=== PATIENT | male | born 1985 | race Caucasian/White ===

== ENCOUNTER 2017-03-12 18:21 | Emergency (ER) | payer BC, MEDICAID ==
[~2017-03-12] VITALS: Ht 172.7 cm; Wt 92.0 kg
[~2017-03-12 18:21] MED LIST: AMOX-291 PO; CARB200T PO; CLON0.5T PO; ESCI10TA10 PO; ESCI20TA10 PO; HYDR-3237 PO; HYDR-3241 PO; IBUP200T48 PO; LORA-446 PO; MELO15TA24 PO; OXYC-302 PO; PARO20TA98 PO
[2017-03-12] MEDS ORDERED: ASPIRIN 81 MG TABLET CHEW ONE (19:38)
[2017-03-12 19:54] LABS: HEMATOCRIT 48.5 % (39.2-51.8); HEMOGLOBIN 16.8 g/dL (13.7-18.0); WHITE BLOOD COUNT 8.4 x10^3/uL (3.4-10)
[2017-03-12] MEDS ORDERED: ASPIRIN 81 MG TABLET CHEW PO ONE (20:00)
[2017-03-12 20:02] VITALS: BP 117/77
[2017-03-12 20:05] LABS: BLOOD UREA NITROGEN 15 mg/dL (7-18)
[2017-03-12 20:11] LABS: IS PT STATUS REG ER OR PRE ER? YES
== END 2017-03-12 20:55 | disposition home or self-care (01) ==
LOC: ED 20:50
DX: S16.1XXA Strain of muscle, fascia and tendon at neck level, initial encounter (principal); F41.1 Generalized anxiety disorder; F32.9 Major depressive disorder, single episode, unspecified; Z88.8 Allergy status to other drugs, medicaments and biological substances; X58.XXXA Exposure to other specified factors, initial encounter; Y93.89 Activity, other specified; Y92.89 Other specified places as the place of occurrence of the external cause; Y99.8 Other external cause status
CPT/HCPCS: 36415; 80048; 82040; 84484; 85025; 93005; 99285

== ENCOUNTER 2017-03-27 03:27 | Emergency (ER) | payer BC, MEDICAID ==
[~2017-03-27] VITALS: Ht 172.7 cm; Wt 91.3 kg
[2017-03-27 03:28] VITALS: BP 142/85
[2017-03-27] MEDS ORDERED: LIDOCAINE 1%, 20ML ONE (03:51)
[2017-03-27] MEDS ORDERED: LIDOCAINE 1%, 20ML INFIL ONE (04:00)
[2017-03-27] MEDS ORDERED: DIPH,PERTUSS(ACELL),TET VAC/PF 0.5 ML IM-VACC ONE ×2 (04:30→04:46)
== END 2017-03-27 05:07 | disposition home or self-care (01) ==
LOC: ED 04:05
DX: L60.0 Ingrowing nail (principal)
CPT/HCPCS: 11730; 90471; 90715

== ENCOUNTER 2017-04-06 19:45 | Emergency (ER) | payer BC, MEDICAID ==
[~2017-04-06] VITALS: Ht 172.7 cm; Wt 90.3 kg
[2017-04-06 19:47] VITALS: BP 128/85
[2017-04-06] MEDS ORDERED: KETOROLAC 30 MG/1 ML IM ONE (20:30)
[2017-04-06] MEDS ORDERED: KETOROLAC 30 MG/1 ML ONE (20:45)
== END 2017-04-06 20:57 | disposition left against medical advice (07) ==
LOC: ED 20:51
DX: S39.012A Strain of muscle, fascia and tendon of lower back, initial encounter (principal); F32.9 Major depressive disorder, single episode, unspecified; F10.20 Alcohol dependence, uncomplicated; G43.909 Migraine, unspecified, not intractable, without status migrainosus; V17.4XXA Pedal cycle driver injured in collision with fixed or stationary object in traffic accident, initial encounter; Y93.I9 Activity, other involving external motion; Y92.488 Other paved roadways as the place of occurrence of the external cause; Y99.8 Other external cause status
CPT/HCPCS: 99283

== ENCOUNTER 2017-05-14 14:52 | Emergency (ER) | payer MEDICAID, OTHER ==
[~2017-05-14] VITALS: Ht 172.7 cm; Wt 90.6 kg
[2017-05-14 15:45] LABS: HEMATOCRIT 49.9 % (39.2-51.8); HEMOGLOBIN 17.1 g/dL (13.7-18.0); WHITE BLOOD COUNT 6.8 x10^3/uL (3.4-10)
[2017-05-14] MEDS ORDERED: ESCI10TA10 PO (15:49)
[2017-05-14 15:55] LABS: BLOOD UREA NITROGEN 17 mg/dL (7-18)
[2017-05-14] MEDS ORDERED: SODIUM CHLORIDE FLUSH 10ML SYR IVF ONE (16:00)
[2017-05-14] MEDS ORDERED: SODIUM CHLORIDE 0.9% 1,000ML IVBOLUS ONE (16:00)
[2017-05-14 16:39] VITALS: BP 125/81
== END 2017-05-14 16:55 | disposition home or self-care (01) ==
LOC: ED 16:49
DX: R00.2 Palpitations (principal); F41.1 Generalized anxiety disorder; G40.909 Epilepsy, unspecified, not intractable, without status epilepticus
CPT/HCPCS: 36415; 80048; 82040; 85025; 93005; 96360; 99285; J7030

== ENCOUNTER 2017-05-31 21:44 | Emergency (ER) | payer OTHER ==
[~2017-05-31] VITALS: Ht 172.7 cm; Wt 90.3 kg
[2017-05-31 21:45] VITALS: BP 144/82
[2017-05-31] MEDS ORDERED: ONDANSETRON ODT 4 MG PO ONE (22:30)
== END 2017-05-31 23:11 | disposition home or self-care (01) ==
LOC: ED 23:07
DX: R11.2 Nausea with vomiting, unspecified (principal)
CPT/HCPCS: 99283; Q0162

== ENCOUNTER 2017-06-14 02:48 | Emergency (ER) | payer OTHER ==
[~2017-06-14] VITALS: Ht 172.7 cm; Wt 92.3 kg
[~2017-06-14 02:48] MED LIST changes: -IBUP200T48 PO; +IBUP200T49 PO
[2017-06-14 04:41] VITALS: BP 144/81
== END 2017-06-14 05:03 | disposition home or self-care (01) ==
LOC: ED 04:57
DX: R00.2 Palpitations (principal); F41.1 Generalized anxiety disorder; F11.10 Opioid abuse, uncomplicated
CPT/HCPCS: 93005; 99283

== ENCOUNTER 2017-06-18 03:30 | Emergency (ER) | payer SELFPAY ==
[~2017-06-18] VITALS: Ht 177.8 cm; Wt 100.0 kg
[2017-06-18 03:34] VITALS: BP 124/86
== END 2017-06-18 05:55 | disposition left against medical advice (07) ==
LOC: ED 05:07
DX: J09.X2 Influenza due to identified novel influenza A virus with other respiratory manifestations (principal)
CPT/HCPCS: 99281

== ENCOUNTER 2017-07-19 00:54 | Emergency (ER) | payer SELFPAY ==
[~2017-07-19] VITALS: Ht 172.7 cm; Wt 90.0 kg
[2017-07-19 00:58] VITALS: BP 123/86
[2017-07-19] MEDS ORDERED: ONDANSETRON ODT 8 MG ONE (01:21)
[2017-07-19] MEDS ORDERED: ONDANSETRON ODT 8 MG PO ONE (01:30)
== END 2017-07-19 01:53 | disposition home or self-care (01) ==
LOC: ED 01:21
DX: F41.1 Generalized anxiety disorder (principal); Z87.891 Personal history of nicotine dependence
CPT/HCPCS: 93005; 99284; Q0162

== ENCOUNTER 2017-07-30 21:58 | Emergency (ER) | payer BC, OTHER ==
[~2017-07-30] VITALS: Ht 172.7 cm; Wt 93.0 kg
[2017-07-30 23:17] LABS: BASOPHILS % (AUTO) 0 % (0-1); EOSINOPHILS % (AUTO) 1 % (1-7); LYMPHOCYTES # (AUTO) 2.59 x10^3/uL (1-3.4); LYMPHOCYTES % (AUTO) 26 % (22-44); MD NO; MEAN CORPUSCULAR HGB CONC 33.5 g/dL (33.2-36.2); MEAN CORPUSCULAR VOLUME 89.5 fL (81-97); MEAN PLATELET VOLUME 9.7 fL (7.4-10.4); MONOCYTES # (AUTO) 0.81 x10^3/uL (0.2-0.8); MONOCYTES % (AUTO) 8 % (2-9); NEUTROPHILS # (AUTO) 6.42 x10^3/uL (1.8-6.8); NEUTROPHILS % (AUTO) 65 % (42-75); PLATELET COUNT 243 x10^3/uL (130-400); RED BLOOD COUNT 5.72 x10^6/uL (4.38-5.82); RED CELL DISTRIBUTION WIDTH 13.1 % (9.4-14.8)
[2017-07-30 23:26] LABS: ALBUMIN 3.7 g/dL (3.4-5.0); ANION GAP 6 mmol/L (5-15); CALCIUM 8.3 mg/dL (8.5-10.1); CHLORIDE 105 mmol/L (98-107)
[2017-07-30 23:30] LABS: TROPONIN I < 0.015 ng/mL (0.000-0.045)
[2017-07-30 23:59] VITALS: BP 123/76
== END 2017-07-31 00:25 | disposition home or self-care (01) ==
LOC: ED 23:24
DX: R07.9 Chest pain, unspecified (principal); G43.909 Migraine, unspecified, not intractable, without status migrainosus
CPT/HCPCS: 36415; 71045; 80048; 82040; 84484; 85025; 93005; 99285

== ENCOUNTER 2017-08-03 10:48 | Emergency (ER) | payer BC ==
[~2017-08-03] VITALS: Ht 172.7 cm; Wt 90.0 kg
[2017-08-03 10:52] VITALS: BP 128/82
== END 2017-08-03 12:56 | disposition left against medical advice (07) ==
LOC: ED 12:15
DX: Z53.21 Procedure and treatment not carried out due to patient leaving prior to being seen by health care provider (principal)

== ENCOUNTER 2017-09-11 00:25 | Emergency (ER) | payer BC ==
[~2017-09-11] VITALS: Ht 172.7 cm; Wt 93.5 kg
[2017-09-11 01:08] VITALS: BP 128/89
== END 2017-09-11 01:38 | disposition home or self-care (01) ==
LOC: ED 01:16
DX: R42 Dizziness and giddiness (principal); F11.10 Opioid abuse, uncomplicated; G43.909 Migraine, unspecified, not intractable, without status migrainosus; G40.909 Epilepsy, unspecified, not intractable, without status epilepticus
CPT/HCPCS: 93005; 99283

== ENCOUNTER 2018-04-25 05:25 | Emergency (ER) | payer BC ==
[~2018-04-25] VITALS: Ht 172.7 cm; Wt 98.6 kg
[2018-04-25] MEDS ORDERED: DICYCLOMINE 10 MG/ML, 2ML ONE (05:56)
[2018-04-25] MEDS ORDERED: FAMOTIDINE 20 MG/2 ML ONE (05:56)
[2018-04-25] MEDS ORDERED: PROMETHAZINE 25 MG/ML, 1ML ONE (05:56)
[2018-04-25] MEDS: DICYCLOMINE 10 MG/ML, 2ML IM ONE ×2 (05:57→06:00)
[2018-04-25] MEDS: PROMETHAZINE 25 MG/ML, 1ML IM ONE ×2 (05:57→06:00)
[2018-04-25] MEDS ORDERED: FAMOTIDINE 20 MG/2 ML IVP ONE (06:00)
[2018-04-25 06:06] VITALS: BP 136/88
[2018-04-25 06:09] LABS: BASOPHILS # (AUTO) 0.02 x10^3/uL (0-0.1); BASOPHILS % (AUTO) 0 % (0-1); EOSINOPHILS # (AUTO) 0.12 x10^3/uL (0-0.4); EOSINOPHILS % (AUTO) 1 % (1-7); LYMPHOCYTES # (AUTO) 3.83 x10^3/uL (1-3.4); LYMPHOCYTES % (AUTO) 31 % (22-44); MD NO; MEAN CORPUSCULAR HGB CONC 34.5 g/dL (33.2-36.2); MEAN CORPUSCULAR VOLUME 90.1 fL (81-97); MONOCYTES # (AUTO) 0.82 x10^3/uL (0.2-0.8); MONOCYTES % (AUTO) 7 % (2-9); NEUTROPHILS # (AUTO) 7.57 x10^3/uL (1.8-6.8); NEUTROPHILS % (AUTO) 61 % (42-75); PLATELET COUNT 244 x10^3/uL (130-400); RED CELL DISTRIBUTION WIDTH 13.4 % (9.4-14.8)
[2018-04-25 06:14] LABS: ALANINE AMINOTRANSFERASE 61 U/L (12-78); ALBUMIN 3.8 g/dL (3.4-5.0); ANION GAP 9 mmol/L (5-15); CALCIUM 8.6 mg/dL (8.5-10.1); CHLORIDE 103 mmol/L (98-107); CREATININE 0.87 mg/dL (0.7-1.3)
[2018-04-25 06:16] LABS: ALKALINE PHOSPHATASE 120 U/L (45-117); BILIRUBIN,TOTAL 0.3 mg/dL (0.2-1.0); TOTAL PROTEIN 7.9 g/dL (6.4-8.2)
== END 2018-04-25 06:09 | disposition left against medical advice (07) ==
LOC: ED 06:00
DX: R10.84 Generalized abdominal pain (principal); R11.2 Nausea with vomiting, unspecified; F32.9 Major depressive disorder, single episode, unspecified; F17.200 Nicotine dependence, unspecified, uncomplicated
CPT/HCPCS: 36415; 80053; 83690; 85025; 93005; 96374; 99285; S0028; J2550; J0500

== ENCOUNTER 2018-05-05 00:40 | Emergency (ER) | payer BC ==
[~2018-05-05] VITALS: Ht 172.7 cm; Wt 99.9 kg
[2018-05-05 01:52] VITALS: BP 128/74
== END 2018-05-05 01:54 | disposition home or self-care (01) ==
LOC: ED 00:58
DX: R07.89 Other chest pain (principal); F41.1 Generalized anxiety disorder; G40.909 Epilepsy, unspecified, not intractable, without status epilepticus; G89.29 Other chronic pain; F17.200 Nicotine dependence, unspecified, uncomplicated
CPT/HCPCS: 71046; 93005; 99284

== ENCOUNTER 2018-06-03 09:08 | Emergency (ER) | payer BC ==
[~2018-06-03] VITALS: Ht 172.7 cm; Wt 98.1 kg
[2018-06-03] MEDS ORDERED: HYDR-3241 PO (09:34)
[2018-06-03 10:20] LABS: MICROSCOPIC NOT IND
[2018-06-03 10:22] LABS: CULTURE INDICATED? NO
[2018-06-03 10:28] LABS: RAPID INFLUENZA A Negative (Negative); RAPID INFLUENZA B Negative (Negative)
[2018-06-03 10:35] LABS: BASOPHILS # (AUTO) 0.02 x10^3/uL (0-0.1); BASOPHILS % (AUTO) 0 % (0-1); EOSINOPHILS # (AUTO) 0.19 x10^3/uL (0-0.4); EOSINOPHILS % (AUTO) 2 % (1-7); LYMPHOCYTES # (AUTO) 2.03 x10^3/uL (1-3.4); LYMPHOCYTES % (AUTO) 25 % (22-44); MD NO; MEAN CORPUSCULAR HEMOGLOBIN 31.2 pg (27.5-34.5); MEAN CORPUSCULAR HGB CONC 34.7 g/dL (33.2-36.2); MEAN PLATELET VOLUME 9.5 fL (7.4-10.4); MONOCYTES # (AUTO) 0.49 x10^3/uL (0.2-0.8); MONOCYTES % (AUTO) 6 % (2-9); NEUTROPHILS % (AUTO) 67 % (42-75); PLATELET COUNT 201 x10^3/uL (130-400); RED BLOOD COUNT 5.24 x10^6/uL (4.38-5.82)
[2018-06-03 10:48] LABS: TROPONIN I < 0.015 ng/mL (0.000-0.045)
[2018-06-03 10:50] LABS: ALANINE AMINOTRANSFERASE 42 U/L (12-78); ALBUMIN 3.6 g/dL (3.4-5.0); ANION GAP 6 mmol/L (5-15); CHLORIDE 106 mmol/L (98-107); CREATININE 0.68 mg/dL (0.7-1.3)
[2018-06-03 10:52] LABS: ALKALINE PHOSPHATASE 113 U/L (45-117); BILIRUBIN,TOTAL 0.4 mg/dL (0.2-1.0); TOTAL PROTEIN 7.5 g/dL (6.4-8.2)
[2018-06-03 12:30] LABS: AMPHETAMINE SCREEN, URINE Negative (Negative); BARBITURATE SCREEN, URINE Negative (Negative); BENZODIAZEPINE SCREEN, URINE Negative (Negative); CANNABINOID SCREEN, URINE Negative (Negative); COCAINE SCREEN, URINE Negative (Negative); METHADONE SCREEN, URINE Negative (Negative); OPIATE SCREEN, URINE Positive (Negative)
[2018-06-03 13:05] VITALS: BP 110/69
== END 2018-06-03 13:32 | disposition home or self-care (01) ==
LOC: ED 09:34
DX: J06.9 Acute upper respiratory infection, unspecified (principal); G43.909 Migraine, unspecified, not intractable, without status migrainosus
CPT/HCPCS: 36415; 70450; 71046; 80053; 80307; 81003; 84484; 85025; 87400; 93005; 99284

== ENCOUNTER 2018-06-15 18:39 | Emergency (ER) | payer BC ==
[~2018-06-15] VITALS: Ht 172.7 cm; Wt 94.5 kg
[2018-06-15 18:41] VITALS: BP 138/80
== END 2018-06-15 19:22 | disposition left against medical advice (07) ==
LOC: ED 19:00
DX: R06.02 Shortness of breath (principal)
CPT/HCPCS: 99281

== ENCOUNTER 2018-08-03 20:55 | Emergency (ER) | payer BC ==
[~2018-08-03] VITALS: Ht 172.7 cm; Wt 94.1 kg
[2018-08-03 21:02] VITALS: BP 126/86
--- NOTE | 2018-08-03 22:21 | NUR ---
PATIENT DECIDED TO LEAVE. AMA FORM SIGNED.
== END 2018-08-03 22:24 | disposition left against medical advice (07) ==
LOC: ED 22:00
DX: R10.9 Unspecified abdominal pain (principal); Z53.21 Procedure and treatment not carried out due to patient leaving prior to being seen by health care provider

== ENCOUNTER 2018-10-11 00:38 | Emergency (ER) | payer MEDICAID ==
[~2018-10-11] VITALS: Ht 172.7 cm; Wt 87.0 kg
[2018-10-11 00:41] VITALS: BP 145/98
--- NOTE | 2018-10-11 01:05 | NUR ---
TASK RN: PT SITTING UP IN [facility] NOTED. PT TALKING ON CELL PHONE. PT REPORTS 'RAN OUT OF ANXIETY MEDS", RESULTING IN ANXIETY. PT APPEARS AGGITATED, COMPLIANT AND RESPECTFUL TO STAFF. DENIES SI/HI. FAMILY AT BEDSIDE.
--- NOTE | 2018-10-11 01:35 | NUR ---
PT REFUSED CLONIDINE IN ER. WANTS RX AND TO LEAVE. PT VERBALIZED UNDERSTANDING OF DISCHARGE PAPERS.
== END 2018-10-11 01:37 | disposition home or self-care (01) ==
LOC: ED 01:15
DX: F41.1 Generalized anxiety disorder (principal); F11.10 Opioid abuse, uncomplicated; F32.9 Major depressive disorder, single episode, unspecified; F17.210 Nicotine dependence, cigarettes, uncomplicated
CPT/HCPCS: 99284

== ENCOUNTER 2019-01-12 03:44 | Emergency (ER) | payer MEDICAID ==
--- NOTE | 2019-01-12 03:50 | NUR ---
pt called to triage. Pt refusing to come in to room. RN asked pt if he would like to be seen by a doctor. Pt states "Not right now. Thank you". Pt then walked out of ER.
== END 2019-01-12 03:53 | disposition left against medical advice (07) ==
LOC: ED 03:44
DX: F41.9 Anxiety disorder, unspecified (principal); Z53.21 Procedure and treatment not carried out due to patient leaving prior to being seen by health care provider

== ENCOUNTER 2019-01-17 01:08 | Emergency (ER) | payer MEDICAID ==
[~2019-01-17] VITALS: Ht 172.7 cm; Wt 74.3 kg
[2019-01-17 02:19] VITALS: BP 104/65
== END 2019-01-17 02:35 | disposition home or self-care (01) ==
LOC: ED 02:00
DX: G44.219 Episodic tension-type headache, not intractable (principal); Z72.9 Problem related to lifestyle, unspecified; F41.1 Generalized anxiety disorder; G40.909 Epilepsy, unspecified, not intractable, without status epilepticus; F32.9 Major depressive disorder, single episode, unspecified; F17.200 Nicotine dependence, unspecified, uncomplicated
CPT/HCPCS: 96372; 99283; J1630

== ENCOUNTER 2019-06-22 16:36 | Emergency (ER) | payer MEDICAID ==
[2019-06-22] MEDS ORDERED: NALOXONE 1 MG/ML, 2ML ONE (16:40)
[2019-06-22] MEDS ORDERED: NALOXONE 0.4 MG/ML, 1ML IVPush PRN (17:00)
[2019-06-22] MEDS ORDERED: SODIUM CHLORIDE 0.9% 1,000ML IVBOLUS ONE (17:00)
== END 2019-06-22 17:52 | disposition home or self-care (01) ==
LOC: ED 17:45
DX: T40.1X1A Poisoning by heroin, accidental (unintentional), initial encounter (principal)
CPT/HCPCS: 96374; 99283; J2310; J7030

== ENCOUNTER 2019-09-14 22:48 | Inpatient (IN) | payer MEDICAID ==
[~2019-09-14] VITALS: Ht 172.7 cm; Wt 68.9 kg
[2019-09-14] MEDS ORDERED: CEFTRIAXONE PMX 1GM/50ML 50 ML ONE (23:24)
[2019-09-14] MEDS ORDERED: LIDOCAINE-MPF 1%, 5ML ONE ×2 (23:24→23:44)
[2019-09-14] MEDS ORDERED: SODIUM CHLORIDE FLUSH 10ML SYR IVF ONE (23:30)
[2019-09-14] MEDS ORDERED: CEFTRIAXONE PMX 1GM/50ML 50 ML IVPB ONE (23:30)
[2019-09-14] MEDS ORDERED: LIDOCAINE-MPF 1%, 5ML INFIL ONE (23:30)
[2019-09-14] MEDS ORDERED: SODIUM CHLORIDE 0.9% 1,000ML IVBOLUS ONE (23:30)
[2019-09-14 23:47] LABS: MEAN CORPUSCULAR HEMOGLOBIN 30.3 pg (27.5-34.5); MEAN CORPUSCULAR HGB CONC 33.3 g/dL (33.2-36.2); MEAN PLATELET VOLUME 8.3 fL (7.4-10.4); PLATELET COUNT 294 x10^3/uL (130-400); RED BLOOD COUNT 4.75 x10^6/uL (4.38-5.82); RED CELL DISTRIBUTION WIDTH 14.4 % (9.4-14.8)
[2019-09-14 23:55] LABS: ALBUMIN 2.8 g/dL (3.4-5.0); ANION GAP 6 mmol/L (5-15); CALCIUM 7.9 mg/dL (8.5-10.1); CHLORIDE 101 mmol/L (98-107)
--- NOTE | 2019-09-14 23:57 | NUR ---
Pt here for right arm abcess s/p iv drug use. Pt reports very painful. Obivious abcess on arm with yellow head forming. Pt reports also warm arm. Pt has modertate erythema around arm. Pt to hav I/D done. vss
[2019-09-15 00:05] LABS: BASOPHILS # (AUTO) 0.05 x10^3/uL (0-0.1); BASOPHILS % (AUTO) 0 % (0-1); EOSINOPHILS # (AUTO) 0.02 x10^3/uL (0-0.4); EOSINOPHILS % (AUTO) 0 % (1-7); LYMPHOCYTES # (AUTO) 2.64 x10^3/uL (1-3.4); LYMPHOCYTES % (AUTO) 17 % (22-44); MD SCAN; MONOCYTES # (AUTO) 1.73 x10^3/uL (0.2-0.8); MONOCYTES % (AUTO) 11 % (2-9); NEUTROPHILS # (AUTO) 10.94 x10^3/uL (1.8-6.8); NEUTROPHILS % (AUTO) 71 % (42-75)
--- NOTE | 2019-09-15 00:05 | NUR ---
PA AT BEDSIDE FOR I&D PT UNABLE TO TOLERATE DUE TO AGGITATION. PT REQ SMALL BREAK.
--- NOTE | 2019-09-15 00:13 | NUR ---
REPORT TO ANKIT HUSTON
[2019-09-15] MEDS ORDERED: LORazepam 2 MG/ML, 1ML IVPush STA (00:31)
--- NOTE | 2019-09-15 00:35 | NUR ---
PA AT BEDSIDE FOR I&D. PT TOO AGGITATED TO TOLERATE AT THIS TIME. MD TO BE UPDATED.
[2019-09-15] MEDS ORDERED: LORazepam 2 MG/ML, 1ML ONE (00:54)
--- NOTE | 2019-09-15 00:59 | NUR ---
PT MEDICATED PER MAR
--- NOTE | 2019-09-15 01:18 | NUR ---
[facility]
[2019-09-15] MEDS ORDERED: SODIUM CHLORIDE 0.9% 1,000ML IVBOLUS ONE (02:30)
[2019-09-15] MEDS ORDERED: VANCOMYCIN PER PHARMACY MC PRN (02:30)
--- NOTE | 2019-09-15 02:45 | NUR ---
Patient with [employer]. Denied by [facility] and [facility].
[2019-09-15] MEDS ORDERED: VANCOMYCIN 1,700 MG in SODIUM CHLORIDE 0.9% 250 ML IV ONE (03:00)
[2019-09-15] MEDS ORDERED: POTASSIUM CHLORIDE 20 MEQ, MAGNESIUM SULFATE 2 GM, THIAMINE 200 MG, MVI ADULT 10 ML, FO... IV SCH (03:29)
[2019-09-15] MEDS ORDERED: OXYcodone IR 5MG TABLET PO PRN (03:30)
[2019-09-15] MEDS ORDERED: ONDANSETRON 2MG/ML, 2ML IVPush PRN (03:30)
[2019-09-15] MEDS ORDERED: hydrALAzine 20 MG/ML, 1ML IVPush PRN (03:30)
[2019-09-15] MEDS ORDERED: KETOROLAC 30 MG/1 ML IV PRN (03:30)
[2019-09-15 04:01] LABS: ALANINE AMINOTRANSFERASE 256 U/L (12-78); ALBUMIN 2.8 g/dL (3.4-5.0); BILIRUBIN, DIRECT 0.2 mg/dL (0.1-0.2)
[2019-09-15 04:02] LABS: ALKALINE PHOSPHATASE 109 U/L (45-117); BILIRUBIN,INDIRECT 0.2 mg/dL (0.0-2.0); BILIRUBIN,TOTAL 0.4 mg/dL (0.2-1.0); TOTAL PROTEIN 6.6 g/dL (6.4-8.2)
[2019-09-15 05:31] LABS: AMPHETAMINE SCREEN, URINE Positive (Negative); BARBITURATE SCREEN, URINE Negative (Negative); BENZODIAZEPINE SCREEN, URINE Negative (Negative); CANNABINOID SCREEN, URINE Negative (Negative); COCAINE SCREEN, URINE Negative (Negative); METHADONE SCREEN, URINE Negative (Negative); OPIATE SCREEN, URINE Positive (Negative)
[2019-09-15 08:53] VITALS: BP 124/73
[2019-09-15] MEDS: CLINDAMYCIN PMX 600MG/50ML 50 ML IV SCH ×2 (11:30→12:40)
[2019-09-15 13:30] VITALS: BP 134/76
== END 2019-09-15 17:54 | disposition left against medical advice (07) | DRG 871 ==
LOC: ED 09-15 02:30 → EDIP 09-15 02:36 → ED 09-15 02:44 → 3N 09-15 03:34
PROVIDERS: ADMIT Family Medicine; ATTEND Hospitalist
DX: A41.9 Sepsis, unspecified organism (principal); G92 Toxic encephalopathy; L02.413 Cutaneous abscess of right upper limb; L02.414 Cutaneous abscess of left upper limb; L03.113 Cellulitis of right upper limb; F11.10 Opioid abuse, uncomplicated; F14.10 Cocaine abuse, uncomplicated; F15.10 Other stimulant abuse, uncomplicated; F17.210 Nicotine dependence, cigarettes, uncomplicated; Z59.0 Homelessness; Z53.29 Procedure and treatment not carried out because of patient's decision for other reasons
CPT/HCPCS: 10061; 36415; 64450; 84145; 96374; 99285; J7042; 80048; 80076; 80307; 82040; 83605; 85025; 87040; 87070; 87205; G0378; J0696; J1885; J3370; J3411; J3475; J3480; J2060; J7030; J7050

== ENCOUNTER 2019-09-30 17:02 | Emergency (ER) | payer MEDICAID ==
[~2019-09-30] VITALS: Ht 172.7 cm; Wt 70.3 kg
--- NOTE | 2019-09-30 17:06 | NUR ---
NO ANSWER TO TRIAGE FROM LOBBY X 1
--- NOTE | 2019-09-30 17:55 | NUR ---
NO ANSWER FROM RESP LOBBY/TRIAGE
--- NOTE | 2019-09-30 18:57 | NUR ---
MULTIPLE NO ANSWER FROM RESP TRIAGE/LOBBY
== END 2019-09-30 18:58 | disposition left against medical advice (07) ==
LOC: ED 18:50
DX: L08.9 Local infection of the skin and subcutaneous tissue, unspecified (principal); Z53.21 Procedure and treatment not carried out due to patient leaving prior to being seen by health care provider

== ENCOUNTER 2019-10-10 01:41 | Emergency (ER) | payer MEDICAID ==
[~2019-10-10] VITALS: Ht 172.7 cm; Wt 68.2 kg
[2019-10-10 01:43] VITALS: BP 123/77
--- NOTE | 2019-10-10 02:15 | NUR ---
assessment made. chart up for MD to see. states " I got a shot of speed, but I am fine now ".
--- NOTE | 2019-10-10 02:18 | NUR ---
ERP at bedside.
--- NOTE | 2019-10-10 02:24 | NUR ---
PT REPORTS "I FEEL FINE, I JUST WANT TO GO EAT".
== END 2019-10-10 02:46 | disposition home or self-care (01) ==
LOC: ED 02:00
DX: F11.129 Opioid abuse with intoxication, unspecified (principal); F15.129 Other stimulant abuse with intoxication, unspecified; F41.1 Generalized anxiety disorder; R00.2 Palpitations; G40.909 Epilepsy, unspecified, not intractable, without status epilepticus; Z72.9 Problem related to lifestyle, unspecified
CPT/HCPCS: 99281

== ENCOUNTER 2019-11-14 22:49 | Emergency (ER) | payer MEDICAID ==
[~2019-11-14] VITALS: Ht 172.7 cm; Wt 67.9 kg
--- NOTE | 2019-11-14 23:04 | NUR ---
PT AMBULATED BACK TO ROOM WITH A SMOOTH AND STEADY GAIT. NAD. RESP WNL. SKIN COLOR WNL WARM AND DRY. FCS no SOB. WCTM. WAITING FOR MD CROFT.
--- NOTE | 2019-11-14 23:36 | NUR ---
SADIE LANGSTON AT FOR EVAL AND POC. PT RESTING IN GURNEY, NAD, FRIEND AT BS, RESP WNL, PT SEEMS DROWSY AND EYES ARE CLOSING, OPENS TO NOISE. WCTM. CALL LIGHT ON LAP.
[2019-11-14] MEDS ORDERED: LIDOCAINE-MPF 1%, 5ML ONE (23:41)
[2019-11-15] MEDS ORDERED: LIDOCAINE 1%, 10ML INFIL ONE
[2019-11-15] MEDS ORDERED: SODIUM CHLORIDE FLUSH 10ML SYR IVF ONE
[2019-11-15] MEDS ORDERED: SODIUM CHLORIDE 0.9% 1,000ML IVBOLUS ONE
[2019-11-15] MEDS ORDERED: PROPOFOL 10 MG/ML, 20ML IVPush ONE
[2019-11-15] MEDS ORDERED: PROPOFOL 10 MG/ML, 20ML ONE (00:13)
[2019-11-15 00:30] VITALS: BP 131/83
[2019-11-15 00:41] LABS: ALANINE AMINOTRANSFERASE 225 U/L (12-78); ALBUMIN 2.9 g/dL (3.4-5.0); ANION GAP 5 mmol/L (5-15); CHLORIDE 104 mmol/L (98-107)
[2019-11-15 00:44] LABS: ALKALINE PHOSPHATASE 133 U/L (45-117); BILIRUBIN,TOTAL 0.5 mg/dL (0.2-1.0); TOTAL PROTEIN 7.1 g/dL (6.4-8.2)
--- NOTE | 2019-11-15 00:59 | NUR ---
pt who is a known drug user left ER with IV in place and refusing to sign AMA paperwork despite being told he needed to wait. [employer] notified, [facility] security notified.
[2019-11-15 06:46] LABS: BASOPHILS # (AUTO) 0.04 x10^3/uL (0-0.1); BASOPHILS % (AUTO) 0 % (0-1); EOSINOPHILS # (AUTO) 0.04 x10^3/uL (0-0.4); EOSINOPHILS % (AUTO) 0 % (1-7); LYMPHOCYTES # (AUTO) 2.32 x10^3/uL (1-3.4); LYMPHOCYTES % (AUTO) 18 % (22-44); MD NO; MEAN CORPUSCULAR HEMOGLOBIN 29.8 pg (27.5-34.5); MONOCYTES # (AUTO) 0.88 x10^3/uL (0.2-0.8); MONOCYTES % (AUTO) 7 % (2-9); NEUTROPHILS # (AUTO) 9.58 x10^3/uL (1.8-6.8); NEUTROPHILS % (AUTO) 75 % (42-75); PLATELET COUNT 330 x10^3/uL (130-400); RED BLOOD COUNT 4.53 x10^6/uL (4.38-5.82); RED CELL DISTRIBUTION WIDTH 14.4 % (9.4-14.8)
== END 2019-11-15 01:04 | disposition home or self-care (01) ==
LOC: ED 23:40
DX: L02.414 Cutaneous abscess of left upper limb (principal); L03.114 Cellulitis of left upper limb; R00.0 Tachycardia, unspecified; Z72.9 Problem related to lifestyle, unspecified; G40.909 Epilepsy, unspecified, not intractable, without status epilepticus; G43.909 Migraine, unspecified, not intractable, without status migrainosus
CPT/HCPCS: 36415; 80053; 83605; 85025; 87040; 99283; J7030

== ENCOUNTER 2020-04-14 05:00 | Emergency (ER) | payer MEDICAID ==
[~2020-04-14] VITALS: Ht 167.6 cm; Wt 89.5 kg
--- NOTE | 2020-04-14 05:10 | NUR ---
34 YEAR OLD MALE TO ED WITH RUQ ABDOMINAL DISCOMFORT. HE STATES HE WAS SEEN AT [facility] THIS EVENING FOR SAME AND THE DIAGNOSED HIM WITH CHOLECYSTITIS AND SAID HE HAS A LOT OF SLUDGE IN HIS GALL BLADDER. HE WANTS TO BE TREATED HERE INSTEAD. HE DENIES ANY WORSENING SYMPTOMS AN IS CURRENTLY DRINKING A SOFT DRINK.
[2020-04-14] MEDS ORDERED: ONDANSETRON ODT 4 MG PO ONE (05:30)
[2020-04-14] MEDS ORDERED: ONDANSETRON ODT 4 MG ONE (05:40)
[2020-04-14 05:56] LABS: BASOPHILS % (AUTO) 0 % (0-1); EOSINOPHILS % (AUTO) 0 % (1-7); LYMPHOCYTES % (AUTO) 16 % (22-44); MEAN CORPUSCULAR HEMOGLOBIN 30.7 pg (27.5-34.5); MEAN CORPUSCULAR HGB CONC 33.7 g/dL (33.2-36.2); MEAN PLATELET VOLUME 8.6 fL (7.4-10.4); MONOCYTES % (AUTO) 9 % (2-9); NEUTROPHILS % (AUTO) 75 % (42-75); PLATELET COUNT 219 x10^3/uL (130-400); RED BLOOD COUNT 4.97 x10^6/uL (4.38-5.82); RED CELL DISTRIBUTION WIDTH 14.9 % (9.4-14.8)
[2020-04-14 06:09] LABS: ALANINE AMINOTRANSFERASE 131 U/L (12-78); ALBUMIN 3.4 g/dL (3.4-5.0); ANION GAP 7 mmol/L (5-15); CHLORIDE 107 mmol/L (98-107); CREATININE 0.83 mg/dL (0.7-1.3)
[2020-04-14 06:11] LABS: ALKALINE PHOSPHATASE 119 U/L (45-117); BILIRUBIN,TOTAL 0.5 mg/dL (0.2-1.0)
[2020-04-14 06:14] LABS: MD NO
[2020-04-14 06:55] VITALS: BP 129/87
--- NOTE | 2020-04-14 06:55 | NUR ---
REPORT RECEIVED FROM LIO HUSTON. PT RESTING ON GURNEY W/ CALL LIGHT IN REACH AND FAMILY AT BEDSIDE, PT TACHYCARDIC, OTHER VS WDL. NADN. AWAITING US READ.
--- NOTE | 2020-04-14 08:11 | NUR ---
Patient given discharge instructions and they have confirmed that they understand the instructions. Patient ambulatory with steady gait.
== END 2020-04-14 08:12 | disposition home or self-care (01) ==
LOC: ED 05:43
DX: R10.31 Right lower quadrant pain (principal); R10.84 Generalized abdominal pain; R11.2 Nausea with vomiting, unspecified; G43.909 Migraine, unspecified, not intractable, without status migrainosus; G40.909 Epilepsy, unspecified, not intractable, without status epilepticus
CPT/HCPCS: 36415; 76700; 80053; 83690; 85025; 99284; Q0162

== ENCOUNTER 2020-05-02 13:13 | Inpatient (IN) | payer MEDICAID ==
[~2020-05-02] VITALS: Ht 172.7 cm; Wt 81.0 kg
[2020-05-02] MEDS ORDERED: NALOXONE 0.4 MG/ML, 1ML ONE (13:40)
[2020-05-02] MEDS ORDERED: NALOXONE 0.4 MG/ML, 1ML IVPush PRN (14:00)
--- NOTE | 2020-05-02 14:11 | NUR ---
PT STATES HE FEELS NAUSEATED AND DIZZY AT THIS TIME. CONTROL ROOM HELPER HE FELT LIKE HE WAS GOING TO PASS OUT. PT LYING IN GURNEY AND CONTINUE TO MONITOR BREATHING EVEN AND UNLABORED
[2020-05-02] MEDS ORDERED: ONDANSETRON 2MG/ML, 2ML ONE (14:36)
[2020-05-02] MEDS ORDERED: SODIUM CHLORIDE 0.9% 1,000 ML IV ONE (15:00)
[2020-05-02] MEDS ORDERED: ONDANSETRON 2MG/ML, 2ML IVPush ONE (15:00)
[2020-05-02] MEDS ORDERED: PIPERACILLIN/TAZO/PMX 3.375GM 50 ML IVPB ONE (15:00)
[2020-05-02] MEDS ORDERED: SODIUM CHLORIDE FLUSH 10ML SYR IVF ONE (15:00)
[2020-05-02] MEDS ORDERED: PIPERACILLIN/TAZO/PMX 3.375GM 50 ML ONE (15:06)
[2020-05-02] MEDS ORDERED: ESCI20TA10 PO (15:17)
[2020-05-02] MEDS ORDERED: OLAN15TA3 PO (15:18)
[2020-05-02 15:20] LABS: ALANINE AMINOTRANSFERASE 137 U/L (12-78); ALBUMIN 4.3 g/dL (3.4-5.0); ANION GAP 3 mmol/L (5-15); C-REACTIVE PROTEIN, QUANT 0.05 mg/dL (0.02-0.49); CALCIUM 8.5 mg/dL (8.5-10.1); CHLORIDE 109 mmol/L (98-107); CREATININE 0.81 mg/dL (0.7-1.3)
[2020-05-02 15:23] LABS: ALKALINE PHOSPHATASE 154 U/L (45-117); BILIRUBIN,TOTAL 0.4 mg/dL (0.2-1.0); TOTAL PROTEIN 8.4 g/dL (6.4-8.2)
[2020-05-02 15:25] LABS: BASOPHILS % (AUTO) 0 % (0-1); EOSINOPHILS % (AUTO) 0 % (1-7); LYMPHOCYTES % (AUTO) 9 % (22-44); MEAN CORPUSCULAR HEMOGLOBIN 31.6 pg (27.5-34.5); MEAN CORPUSCULAR HGB CONC 33.9 g/dL (33.2-36.2); MEAN PLATELET VOLUME 8.7 fL (7.4-10.4); MONOCYTES % (AUTO) 5 % (2-9); NEUTROPHILS % (AUTO) 86 % (42-75); PLATELET COUNT 218 x10^3/uL (130-400); RED BLOOD COUNT 5.96 x10^6/uL (4.38-5.82); RED CELL DISTRIBUTION WIDTH 14.1 % (9.4-14.8)
[2020-05-02 15:29] LABS: MD NO
[2020-05-02 15:40] LABS: HCT (SEDRATE) 55.6 % (39.2-51.8)
[2020-05-02] MEDS ORDERED: ENOXAPARIN 40 MG/0.4 ML SQ SCH (17:00)
[2020-05-02] MEDS ORDERED: VANCOMYCIN PER PHARMACY MC PRN (17:00)
[2020-05-02] MEDS ORDERED: ONDANSETRON ODT 4 MG PO PRN (17:00)
[2020-05-02] MEDS ORDERED: ONDANSETRON 2MG/ML, 2ML IVPush PRN (17:00)
[2020-05-02] MEDS ORDERED: ACETAMINOPHEN 325 MG TABLET PO PRN (17:00)
[2020-05-02] MEDS ORDERED: SODIUM CHLORIDE 0.9% 1,000 ML IV SCH (17:00)
[2020-05-02] MEDS ORDERED: METOCLOPRAMIDE 5 MG/ML, 2ML ONE (17:12)
[2020-05-02] MEDS: PIPERACILLIN/TAZO/PMX 3.375GM 50 ML IV SCH (17:19)
[2020-05-02] MEDS ORDERED: METOCLOPRAMIDE 5 MG/ML, 2ML IVPush ONE (17:30)
[2020-05-02] MEDS ORDERED: ENOXAPARIN 40 MG/0.4 ML ONE (18:01)
--- NOTE | 2020-05-02 18:22 | NUR ---
SBAR TELEPHONE HAND-OFF REPORT GIVEN TO BETZAIDA MURRAY. PT READY TO GO TO HOSPITAL ROOM.
[2020-05-02 20:00] VITALS: BP 135/84
[2020-05-02] MEDS ORDERED: VANCOMYCIN 2,000 MG in SODIUM CHLORIDE 0.9% 500 ML IV ONE (20:00)
[2020-05-02] MEDS ORDERED: PHARMACOKINETIC CONSULTATION MC ONE (20:00)
[2020-05-02] MEDS ORDERED: PHARMACOKINETIC MONITORING MC PRN (20:00)
[2020-05-02 20:37] LABS: TROPONIN I < 0.015 ng/mL (0.000-0.045)
[2020-05-02 21:25] LABS: MICROSCOPIC INDICATED
[2020-05-02 21:33] LABS: AMPHETAMINE SCREEN, URINE Positive (Negative); BARBITURATE SCREEN, URINE Negative (Negative); BENZODIAZEPINE SCREEN, URINE Negative (Negative); CANNABINOID SCREEN, URINE Negative (Negative); COCAINE SCREEN, URINE Negative (Negative); METHADONE SCREEN, URINE Negative (Negative); OPIATE SCREEN, URINE Positive (Negative)
[2020-05-03] MEDS: PIPERACILLIN/TAZO/PMX 3.375GM 50 ML IV SCH (01:00)
[2020-05-03] MEDS ORDERED: VANCOMYCIN 1,600 MG in SODIUM CHLORIDE 0.9% 250 ML IV SCH ×2 (09:00→10:00)
== END 2020-05-03 02:05 | disposition left against medical advice (07) | DRG 871 ==
LOC: ED 13:56 → EDIP 16:00 → 4WST 18:36
PROVIDERS: ADMIT Family Medicine; ATTEND Family Medicine
DX: A41.9 Sepsis, unspecified organism (principal); J18.9 Pneumonia, unspecified organism; J98.11 Atelectasis; F17.210 Nicotine dependence, cigarettes, uncomplicated; F19.90 Other psychoactive substance use, unspecified, uncomplicated; F32.9 Major depressive disorder, single episode, unspecified; F41.9 Anxiety disorder, unspecified; F11.90 Opioid use, unspecified, uncomplicated; G43.909 Migraine, unspecified, not intractable, without status migrainosus; G89.29 Other chronic pain; F15.129 Other stimulant abuse with intoxication, unspecified; Z59.0 Homelessness
CPT/HCPCS: 36415; 71045; 80053; 80074; 80307; 81001; 83605; 83735; 84100; 84145; 84484; 85025; 85651; 86140; 87040; 87521; 87806; 93005; 96361; 96365; 96366; 96367; 96372; 99285; G0378; J1650; J2310; J2405; J2543; J3370; G0475; J2765; J7030; J7040

== ENCOUNTER 2020-05-03 13:28 | Emergency (ER) | payer MEDICAID ==
[~2020-05-03] VITALS: Ht 172.7 cm; Wt 89.7 kg
[~2020-05-03 13:28] MED LIST changes: +OLAN15TA3 PO
--- NOTE | 2020-05-03 14:02 | NUR ---
PT AMBULATES BACK TO ROOM FROM [facility]. PER PT HE IS HERE TO GET CLEARED TO GO TO REHAB. PT DENIES N/V/D AT THIS TIME. PT RESTING IN [facility], NEEDS MET AT THIS TIME.
[2020-05-03 14:43] LABS: BASOPHILS % (AUTO) 0 % (0-1); EOSINOPHILS % (AUTO) 1 % (1-7); LYMPHOCYTES % (AUTO) 21 % (22-44); MEAN CORPUSCULAR HEMOGLOBIN 31.5 pg (27.5-34.5); MEAN CORPUSCULAR HGB CONC 33.9 g/dL (33.2-36.2); MEAN PLATELET VOLUME 8.5 fL (7.4-10.4); MONOCYTES % (AUTO) 10 % (2-9); NEUTROPHILS % (AUTO) 68 % (42-75); PLATELET COUNT 227 x10^3/uL (130-400); RED CELL DISTRIBUTION WIDTH 13.9 % (9.4-14.8)
[2020-05-03 14:45] LABS: MD NO
[2020-05-03 14:47] LABS: ALBUMIN 3.7 g/dL (3.4-5.0); ANION GAP 6 mmol/L (5-15); CALCIUM 8.2 mg/dL (8.5-10.1); CHLORIDE 108 mmol/L (98-107); CREATININE 0.74 mg/dL (0.7-1.3)
[2020-05-03 15:37] VITALS: BP 138/78
== END 2020-05-03 15:39 | disposition home or self-care (01) ==
LOC: ED 15:03
DX: F15.10 Other stimulant abuse, uncomplicated (principal); F11.10 Opioid abuse, uncomplicated; G43.909 Migraine, unspecified, not intractable, without status migrainosus; R11.0 Nausea; R50.9 Fever, unspecified; F17.200 Nicotine dependence, unspecified, uncomplicated
CPT/HCPCS: 36415; 71045; 80048; 82040; 83605; 85025; 87040; 99284

== ENCOUNTER 2021-02-05 16:38 | Emergency (ER) | payer MEDICAID ==
[~2021-02-05] VITALS: Ht 172.7 cm; Wt 90.0 kg
[~2021-02-05 16:38] MED LIST changes: -OXYC-302 PO; +OXYC1TAB14 PO
--- NOTE | 2021-02-05 16:50 | NUR ---
BIBA FOR CHEST PAIN AND SOB WHILE PT WAS OUT WALKING. HR IN 140'S. PER EMS PT HAS HX OF IV DRUG USE. PER FATHER, WHO IS AT BEDSIDE, PT HAS BEEN STRUGGLING WITH ADDICTION AND EXHIBITED ODD BEHAVIOR TODAY AFTER GETTING PAID. PT ATTACHED TO MONITORS. VSS. AWAITING ORDERS.
[2021-02-05 17:23] LABS: BASOPHILS % (AUTO) 0 % (0-1); EOSINOPHILS % (AUTO) 0 % (1-7); LYMPHOCYTES % (AUTO) 16 % (22-44); MEAN CORPUSCULAR HEMOGLOBIN 32.1 pg (27.5-34.5); MEAN CORPUSCULAR HGB CONC 34.8 g/dL (33.2-36.2); MONOCYTES % (AUTO) 6 % (2-9); NEUTROPHILS % (AUTO) 78 % (42-75); PLATELET COUNT 216 x10^3/uL (130-400); RED CELL DISTRIBUTION WIDTH 13.8 % (9.4-14.8)
[2021-02-05] MEDS ORDERED: SODIUM CHLORIDE 0.9% 1,000ML IVBOLUS ONE (17:30)
[2021-02-05] MEDS ORDERED: SODIUM CHLORIDE FLUSH 10ML SYR IVF ONE (17:30)
[2021-02-05 17:35] LABS: ALANINE AMINOTRANSFERASE 71 U/L (12-78); ALBUMIN 3.7 g/dL (3.4-5.0); ANION GAP 6 mmol/L (5-15); CALCIUM 8.7 mg/dL (8.5-10.1); CHLORIDE 107 mmol/L (98-107); CREATININE 0.69 mg/dL (0.7-1.3)
[2021-02-05 17:40] LABS: ALKALINE PHOSPHATASE 117 U/L (45-117); BILIRUBIN,TOTAL 0.6 mg/dL (0.2-1.0); TOTAL PROTEIN 7.6 g/dL (6.4-8.2); TROPONIN I < 0.015 ng/mL (0.000-0.045)
[2021-02-05 17:48] LABS: AMPHETAMINE SCREEN, URINE Negative (Negative); BARBITURATE SCREEN, URINE Negative (Negative); BENZODIAZEPINE SCREEN, URINE Negative (Negative); CANNABINOID SCREEN, URINE Negative (Negative); COCAINE SCREEN, URINE Negative (Negative); METHADONE SCREEN, URINE Negative (Negative); OPIATE SCREEN, URINE Negative (Negative)
[2021-02-05 18:24] VITALS: BP 139/61
--- NOTE | 2021-02-05 18:24 | NUR ---
PT UP TO BATHROOM WITH STEADY GAIT. EZ. YEVGENIY.
--- NOTE | 2021-02-05 18:41 | NUR ---
PT TO CT. VSS. VUONG. FATHER AT BEDSIDE.
--- NOTE | 2021-02-05 19:47 | NUR ---
Patient/Caregiver given discharge instructions and they have confirmed that they understand the instructions. Patient ambulatory with steady gait. NAD, all questions answered appropriately, denies additional needs at this time. No personal belongings left in room after discharge.
[2021-02-05] MEDS ORDERED: OMNIPAQUE 350 MG/ML, 100ML BOTTLE ONE (20:00)
== END 2021-02-05 19:49 | disposition home or self-care (01) ==
LOC: ED 19:46
DX: R07.89 Other chest pain (principal); R00.0 Tachycardia, unspecified; R11.0 Nausea; R05 Cough; G40.909 Epilepsy, unspecified, not intractable, without status epilepticus
CPT/HCPCS: 36415; 71045; 71275; 80053; 80307; 84484; 85025; 85379; 93005; 99285; J7030; Q9967

== ENCOUNTER 2021-02-18 11:00 | Emergency (ER) | payer MEDICAID ==
[~2021-02-18] VITALS: Ht 172.7 cm; Wt 96.6 kg
--- NOTE | 2021-02-18 11:20 | NUR ---
BP CUFF, PULSE OX IN PLACE. LIGHTS DIMMED PER PT REQUEST. WARM BLANKET PROVIDED.
--- NOTE | 2021-02-18 12:15 | NUR ---
MEDIC STUDENT IN TO START IV/DRAW LABS.
[2021-02-18] MEDS ORDERED: FAMOTIDINE 20 MG/2 ML ONE (12:25)
[2021-02-18] MEDS ORDERED: ONDANSETRON 2MG/ML, 2ML ONE (12:25)
[2021-02-18] MEDS ORDERED: LORazepam 2 MG/ML, 1ML ONE (12:26)
[2021-02-18] MEDS ORDERED: LORazepam 2 MG/ML, 1ML IVPush ONE (12:30)
[2021-02-18] MEDS ORDERED: SODIUM CHLORIDE 0.9% 1,000ML IVBOLUS ONE (12:30)
[2021-02-18] MEDS ORDERED: FAMOTIDINE 20 MG/2 ML IVPush ONE (12:30)
[2021-02-18] MEDS ORDERED: ONDANSETRON 2MG/ML, 2ML IVPush ONE (12:30)
--- NOTE | 2021-02-18 12:30 | NUR ---
IV PLACED, NS BOLUS INFUSING PER ERP ORDER. MEDS GIVEN PER ERP ORDER FOR NAUSEA, ANXIETY, 1/10 PAIN. CALL LIGHT WITHIN REACH.
--- NOTE | 2021-02-18 13:06 | NUR ---
URINE COLLECTED/SENT TO LAB. PT REQUESTING MORE ATIVAN, STATES "I'M STILL REALLY ANXIOUS, A LOT HAS BEEN GOING ON". ERP NOTIFIED. CONTINUE TO AWAIT LAB RESULTS. PT UP/AMBULATORY IN [place] TO MAKE CALL TO MOM.
[2021-02-18 13:18] LABS: BASOPHILS % (AUTO) 0 % (0-1); EOSINOPHILS % (AUTO) 0 % (1-7); LYMPHOCYTES % (AUTO) 11 % (22-44); MEAN CORPUSCULAR HEMOGLOBIN 31.4 pg (27.5-34.5); MEAN CORPUSCULAR HGB CONC 33.9 g/dL (33.2-36.2); MEAN PLATELET VOLUME 9.3 fL (7.4-10.4); MONOCYTES % (AUTO) 7 % (2-9); NEUTROPHILS % (AUTO) 82 % (42-75); PLATELET COUNT 209 x10^3/uL (130-400); RED CELL DISTRIBUTION WIDTH 13.5 % (9.4-14.8)
[2021-02-18 13:19] LABS: MICROSCOPIC NOT IND
[2021-02-18 13:22] LABS: ALBUMIN 3.9 g/dL (3.4-5.0); ANION GAP 6 mmol/L (5-15); CALCIUM 8.8 mg/dL (8.5-10.1); CHLORIDE 97 mmol/L (98-107)
[2021-02-18 13:23] LABS: CREATININE 0.73 mg/dL (0.7-1.3)
[2021-02-18 14:10] VITALS: BP 138/84
== END 2021-02-18 14:12 | disposition home or self-care (01) ==
LOC: ED 11:08
DX: R11.2 Nausea with vomiting, unspecified (principal); F41.1 Generalized anxiety disorder; G40.909 Epilepsy, unspecified, not intractable, without status epilepticus
CPT/HCPCS: 36415; 80048; 81003; 82040; 85025; 96361; 96374; 96375; 99284; J2060; J2405; J7030